=== PATIENT | female | born 1990 | race Caucasian/White ===

== ENCOUNTER 2024-03-11 12:11 | Emergency (ER) | payer OTHER ==
--- NOTE | 2024-03-11 12:29 | ER ---
Nurse's Notes [facility] Name: Leanne Garcia Age: 33 yrs Sex: Female : 1990 Arrival Date: 03/11/2024 Time: 12:11 Bed 12 Private MD: Diagnosis: Acute tonsillitis, unspecified Presentation: 03/11 12:22 Chief complaint: Patient states: "I'm pretty sure I have strep" pt states fever and as6 sore throat that started yesterday and swollen tonsils that started today. Coronavirus screen: At this time, the client does not indicate any symptoms associated with coronavirus-19. Ebola Screen: No symptoms or risks identified at this time. Initial Sepsis Screen: Does the patient meet any 2 criteria? No. Patient's initial sepsis screen is negative. Does the patient have a suspected source of infection? No. Patient's initial sepsis screen is negative. Risk Assessment: Do you want to hurt yourself or someone else? Patient reports no desire to harm self or others. Onset of symptoms was March 10, 2024. 12:22 Acuity: CHAUNCEY 4 as6 12:22 Method Of Arrival: Ambulatory as6 Triage Assessment: 12:23 General: Appears in no apparent distress. Behavior is calm, cooperative. Pain: as6 Complains of pain in throat. EENT: Throat is reddened has patchy exudate has enlarged tonsils bilaterally. 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 - Infectious Disease History:: Denies. - Social history:: Smoking status: Patient reports the use of cigarette tobacco products, smokes one-half pack cigarettes per day. - Family history:: not pertinent. - Hospitalizations: : No recent hospitalization is reported. Screenin:14 [facility] ED Fall Risk Assessment (Adult) History of falling in the last 3 months, mb9 including since admission No falls in past 3 months (0 pts) Confusion or Disorientation No (0 pts) Intoxicated or Sedated No (0 pts) Impaired Gait No (0 pts) Mobility Assist Device Used No (0 pt) Altered Elimination No (0 pt) Score/Fall Risk Level 0 - 2 = Low Risk Oriented to surroundings, Maintained a safe environment, Educated pt \\T\\ family on fall prevention, incl call for assistance when getting out of bed, Assessed \\T\\ reinforced patient's understanding of fall precautions. Abuse screen: Denies threats or abuse. Nutritional screening: No deficits noted. Tuberculosis screening: No symptoms or risk factors identified. Assessment: 12:26 General: Appears in no apparent distress. Behavior is calm, cooperative. Pain: mb9 Complains of pain in throat Pain does not radiate. Quality of pain is described as throbbing. Neuro: Snyder Agitation-Sedation Scale (RASS): 0 - Alert and Calm Level of Consciousness is awake, alert, obeys commands, Oriented to person, place, time, situation, Appropriate for age. Cardiovascular: Heart tones S1 S2 present Patient's skin is warm and dry. Respiratory: Airway is patent Respiratory effort is even, unlabored, Respiratory pattern is regular, symmetrical, Breath sounds are clear bilaterally. GI: No signs and/or symptoms were reported involving the gastrointestinal system. : No signs and/or symptoms were reported regarding the genitourinary system. EENT: Throat is reddened. Derm: Skin is pink, warm \\T\\ dry. Musculoskeletal: Range of motion: intact in all extremities. Vital Signs: 12:19 BP 125 / 93; Pulse 87; Resp 18; Temp 98; Pulse Ox 100% ; Weight 90.72 kg; Height 5 ft. as6 6 in. ; Pain 8/10; 12:19 Body Mass Index 32.28 (90.72 kg, 167.64 cm) as6 12:19 Pain Scale: Adult as6 ED Course: 12:14 Patient arrived in ED. mg5 12:14 Lela Birch, RN is Primary Nurse. mb9 12:14 Arm band placed on. mb9 12:15 Placed in gown. Bed in low position. Call light in reach. Side rails up X 1. Provided mb9 Education on: press call light if needing anything. Client placed on continuous cardiac and pulse oximetry monitoring. NIBP monitoring applied. 12:18 Saurav Tamayo MD is Attending Physician. rn 12:23 Triage completed. as6 12:27 No provider procedures requiring assistance completed. Patient did not have IV access mb9 during this emergency room visit. Administered Medications: No medications were administered Medication: 12:15 VIS not applicable for this client. rodriguez Outcome: 12:28 Discharge ordered by . rn 12:34 Discharged to home ambulatory, with family, rodriguez 12:34 Condition: stable 12:34 Discharge instructions given to patient, family, Instructed on discharge instructions, follow up and referral plans. Demonstrated understanding of instructions, follow-up care, medications, Prescriptions given X 1, 12:35 Patient left the ED. rodriguez Signatures: Saurav Tamayo MD MD rn Slawson, Ashby, RN RN as6 Lela Birch RN RN mb9 Rosa Fair 5
--- NOTE | 2024-03-11 12:29 | EDPHYS ---
Physician Documentation [facility] Name: Leanne Garcia Age: 33 yrs Sex: Female : 1990 Arrival Date: 03/11/2024 Time: 12:11 Bed 12 Private MD: ED Physician Saurav Tamayo HPI: 03/11 12:27 This 33 yrs old Female presents to ER via Ambulatory with complaints of Sore Throat. rn 12:27 The patient presents with sore throat. The patient describes throat pain as raw. Onset: rn The symptoms/episode began/occurred yesterday. Severity of symptoms: At their worst the symptoms were moderate, in the emergency department the symptoms are unchanged. Modifying factors: The symptoms are alleviated by nothing, the symptoms are aggravated by swallowing, Patient's oral intake status: good. The patient has experienced similar episodes in the past. Patient reports sore throat for 2 days. No trauma. Has had strep throat before and feels similar. No runny nose or shortness of breath.. 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 - Infectious Disease History:: Denies. - Social history:: Smoking status: Patient reports the use of cigarette tobacco products, smokes one-half pack cigarettes per day. - Family history:: not pertinent. - Hospitalizations: : No recent hospitalization is reported. ROS: 12:27 Constitutional: Negative for fever, chills, and weight loss, ENT: Positive for sore rn throat Exam: 12:27 Constitutional: This is a well developed, well nourished patient who is awake, alert, rn and in no acute distress. ENT: Bilateral tonsillar hypertrophy with exudate. No stridor. Neck: Bilateral tender cervical lymphadenopathy present. Respiratory: No increased work of breathing, no retractions or nasal flaring. Vital Signs: 12:19 BP 125 / 93; Pulse 87; Resp 18; Temp 98; Pulse Ox 100% ; Weight 90.72 kg; Height 5 ft. as6 6 in. ; Pain 8/10; 12:19 Body Mass Index 32.28 (90.72 kg, 167.64 cm) as6 12:19 Pain Scale: Adult as6 MDM: 12:18 Patient medically screened. rn 12:27 Differential diagnosis: group A strep tonsillitis, tonsillitis. Data reviewed: vital rn signs, nurses notes, lab test result(s), and as a result, I will discharge patient. Counseling: I had a detailed discussion with the patient and/or guardian regarding the historical points, exam findings, and any diagnostic results supporting the discharge/admit diagnosis, the need for outpatient follow up, to return to the emergency department if symptoms worsen or persist or if there are any questions or concerns that arise at home. Special discussion: I discussed with the patient/guardian in detail that at this point there is no indication for admission to the hospital. It is understood, however, that if the symptoms persist or worsen the patient needs to return immediately for re-evaluation. 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
[2024-03-11 12:42] VITALS: BP 125/93; TEMP 98; O2SAT 100
== END 2024-03-11 12:35 | disposition home or self-care (01) ==
LOC: ER 12:11
DX: J03.90 Acute tonsillitis, unspecified (principal); F17.210 Nicotine dependence, cigarettes, uncomplicated
CPT/HCPCS: 87081; 99283

== ENCOUNTER 2024-05-03 16:01 | Emergency (ER) | payer SELFPAY ==
--- NOTE | 2024-05-03 16:34 | RAD REPORT ---
EXAM DESCRIPTION: Froy Single View05/03/2024 4:28 pm CLINICAL HISTORY: CHEST PAIN COMPARISON: No comparisons TECHNIQUE: Portable AP view of the chest. FINDINGS: The lungs are clear. No pneumothorax or effusion. The cardiomediastinal contours are unre markable. IMPRESSION: No acute cardiopulmonary process.
--- NOTE | 2024-05-03 16:54 | RAD REPORT ---
EXAM DESCRIPTION: Ribs Right - 05/03/2024 4:28 pm CLINICAL HISTORY: RIB PAIN - RIGHT COMPARISON: Chest Single View dated 05/03/2024 TECHNIQUE: Right ribs, 3 views. FINDINGS: No displaced rib fracture is evident. No aggressive rib lesion. No underlying pneumothorax, effusion, infiltrate or pulmonary contusion. IMPRESSION: Negative right rib series.
--- NOTE | 2024-05-03 16:58 | ER ---
Nurse's Notes [facility] Name: Leanne Garcia Age: 33 yrs Sex: Female : 1990 Arrival Date: 05/03/2024 Time: 16:01 Bed 17 Private MD: Diagnosis: Contusion of right back wall of thorax Presentation: 05/03 16:12 Chief complaint: Patient states: fell out of tube and hit right posterior ribs on me1 something about 2 weeks ago. Was stretching last night and heard something pop and has worsened pain today. Coronavirus screen: Vaccine status: Patient reports receiving the 2nd dose of the covid vaccine. Ebola Screen: No symptoms or risks identified at this time. Initial Sepsis Screen: Does the patient meet any 2 criteria? No. Patient's initial sepsis screen is negative. Does the patient have a suspected source of infection? No. Patient's initial sepsis screen is negative. Risk Assessment: Do you want to hurt yourself or someone else? Patient reports no desire to harm self or others. Onset of symptoms was April 19, 2024. 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 - Infectious Disease History:: Denies. - Social history:: Smoking status: Patient reports the use of cigarette tobacco products, smokes one-half pack cigarettes per day. Screenin:25 [facility] ED Fall Risk Assessment (Adult) History of falling in the last 3 months, tl4 including since admission No falls in past 3 months (0 pts) Confusion or Disorientation No (0 pts) Intoxicated or Sedated No (0 pts) Impaired Gait No (0 pts) Mobility Assist Device Used No (0 pt) Altered Elimination No (0 pt) Score/Fall Risk Level 0 - 2 = Low Risk Oriented to surroundings, Maintained a safe environment, Educated pt \T\ family on fall prevention, incl call for assistance when getting out of bed, Assessed \T\ reinforced patient's understanding of fall precautions. Abuse screen: Denies threats or abuse. Denies injuries from another. Nutritional screening: No deficits noted. Tuberculosis screening: No symptoms or risk factors identified. Assessment: 16:22 General: Appears in no apparent distress. Behavior is calm, cooperative. Pain: tl4 Complains of pain in right lateral posterior chest. Neuro: Level of Consciousness is awake, alert, obeys commands, Oriented to person, place, time, situation, Moves all extremities. Full function Gait is steady, Speech is normal, Facial symmetry appears normal. Cardiovascular: Capillary refill < 3 seconds Patient's skin is warm and dry. Respiratory: Airway is patent Respiratory effort is even, unlabored, Respiratory pattern is regular, symmetrical, Breath sounds are clear bilaterally. GI: No signs and/or symptoms were reported involving the gastrointestinal system. : No signs and/or symptoms were reported regarding the genitourinary system. EENT: No signs and/or symptoms were reported regarding the EENT system. Derm: No signs and/or symptoms reported regarding the dermatologic system. Musculoskeletal: Reports pain in right lateral posterior chest. Vital Signs: 16:12 BP 127 / 102; Pulse 99; Resp 18; Temp 97.8; Pulse Ox 99% ; Pain 8/10; me1 17:22 BP 124 / 86; Pulse 83; Resp 18; Temp 98.1(O); Pulse Ox 99% on R/A; tl4 16:12 Pain Scale: Adult me1 ED Course: 16:02 Patient arrived in ED. im 16:06 Yvonne Lala [facility]-C [facility]. kb 16:06 Bright Woods MD is Attending Physician. kb 16:13 Triage completed. me1 16:13 Arm band placed on Patient placed in an exam room. me1 16:29 Chest Single View XRAY In Process Unspecified. EDMS 16:30 Ribs Right XRAY In Process Unspecified. EDMS 17:22 Patient has correct armband on for positive identification. Bed in low position. Call tl4 light in reach. Side rails up X 1. Adult w/ patient. Provided Education on: ed process, call morrison. Client placed on continuous cardiac and pulse oximetry monitoring. NIBP monitoring applied. 17:23 No provider procedures requiring assistance completed. Patient did not have IV access tl4 during this emergency room visit. Administered Medications: 17:06 Drug: Hydrocodone-Acetaminophen PO (7.5 mg-325 mg) 1 tabs PO once Route: PO; tl4 17:19 Follow up: Response: No adverse reaction tl4 Medication: 17:22 VIS not applicable for this client. tl4 Outcome: 16:57 Discharge ordered by . mayte 17:23 Discharged to home ambulatory, with family, tl4 17:23 Condition: stable 17:23 Discharge instructions given to patient, Instructed on discharge instructions, follow up and referral plans. medication usage, Demonstrated understanding of instructions, follow-up care, medications, Prescriptions given X 1, 17:24 Patient left the ED. tl4 Signatures: Dispatcher [employer] EDME Yvonne Lala, HISTORY TUTOR-C HISTORY TUTOR-CkNasrin Mar Michelle, RN RN me1 Bradford Sawyer RN RN tl4
--- NOTE | 2024-05-03 16:58 | EDPHYS ---
Physician Documentation [facility] Name: Leanne Garcia Age: 33 yrs Sex: Female : 1990 Arrival Date: 05/03/2024 Time: 16:01 Bed 17 Private MD: ED Physician Bright Woods HPI: 05/03 16:54 This 33 yrs old Female presents to ER via Ambulatory with complaints of Rib pain. kb 16:54 Pt is a 33 year old female who presents for right posterior rib pain that started 2 kb week ago after hitting it on a rock or limb while tubing in the river. States the pain was getting better, but today she was doing some stretches and felt a pop, now the pain is back. Pain aggravated with movement and breathing. Denies shortness of breath. 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 - Infectious Disease History:: Denies. - Social history:: Smoking status: Patient reports the use of cigarette tobacco products, smokes one-half pack cigarettes per day. ROS: 16:53 Constitutional: As per HPI kb Exam: 16:53 Constitutional: This is a well developed, well nourished patient who is awake, alert, kb and in no acute distress. Head/Face: Normocephalic, atraumatic. ENT: Moist Mucous membranes Cardiovascular: Regular rate Respiratory: Respirations even and unlabored. No increased work of breathing. Talking in full sentences Abdomen/GI: Soft, non-tender. No distention Skin: Warm, dry with normal turgor. Normal color. MS/ Extremity: Pulses equal, no cyanosis. Neurovascular intact. Full, normal range of motion. Neuro: Awake and alert, GCS 15, oriented to person, place, time, and situation. Moves all extremities. Normal gait. 16:53 Chest/axilla: Inspection: ecchymosis, that is mild, that is moderate, of the right lateral posterior chest Palpation: is normal, Vital Signs: 16:12 BP 127 / 102; Pulse 99; Resp 18; Temp 97.8; Pulse Ox 99% ; Pain 8/10; me1 17:22 BP 124 / 86; Pulse 83; Resp 18; Temp 98.1(O); Pulse Ox 99% on R/A; tl4 16:12 Pain Scale: Adult me1 MDM: 16:06 Patient medically screened. kb 16:54 Differential diagnosis: pneumothorax, contusion of back wall of thorax, rib fracture. kb Data reviewed: vital signs, nurses notes. Counseling: I had a detailed discussion with the patient and/or guardian regarding the historical points, exam findings, and any diagnostic results supporting the discharge/admit diagnosis, radiology results, the need for outpatient follow up, a family practitioner, to return to the emergency department if symptoms worsen or persist or if there are any questions or concerns that arise at home. 05/03 16:11 Order name: Chest Single View XRAY; Complete Time: 16:42 kb 05/03 16:11 Order name: Ribs Right XRAY; Complete Time: 16:57 kb Administered Medications: 17:06 Drug: Hydrocodone-Acetaminophen PO (7.5 mg-325 mg) 1 tabs PO once Route: PO; tl4 17:19 Follow up: Response: No adverse reaction tl4 Disposition Summary: 05/03/24 16:57 Discharge Ordered Notes: Location: Home kb Condition: Stable kb Diagnosis - Contusion of right back wall of thorax kb Followup: kb - With: Emergency Department - When: As needed - Reason: Worsening of condition Followup: kb - With: Private Physician - When: 2 - 3 days - Reason: Recheck today's complaints, Continuance of care, Re-evaluation by your physician Discharge Instructions: - Discharge Summary Sheet kb - Chest Contusion, Adult, [id number] kb - Rib Fracture, [id number] kb Forms: - Work release form kb - Medication Reconciliation Form kb - Antibiotic Education kb - Prescription Opioid Use kb - Patient Portal Instructions kb - Leadership Thank You Letter kb Prescriptions: - Diclofenac Sodium 75 mg Oral tablet, delayed release (enteric coated) - take 1 tablet ORAL route 2 times per day As needed; 30 tablet; Refills: 0, kb Product Selection Permitted Addendum: 05/04/2024 17:52 I was immediately available for consultation during this patient's visit. I did not e c2 personally see the patient or discuss the patient with the [place]. . Signatures: Dispatcher [employer] ALY Lala Yvonne, SALES DEVELOPMENT COORDINATOR-C SALES DEVELOPMENT COORDINATOR-Ckb Stacy Breen, RN RN me1 Bright Woods MD MD ec2 Bradford Sawyer RN RN tl4 Corrections: (The following items were deleted from the chart) 05/03 16:56 16:54 Pt is a 33 year old female who presents for right posterior rib pain that started kb 2 week ago after hitting it on a rock or limb while tubing in the river. States the pain was getting better, but today she was doing some stretches and felt a pop, now the pain is back. . kb
[2024-05-03] MEDS ORDERED: HYDROCODONE/APAP 7.5/325 MG TAB ONE (17:14)
[2024-05-03 20:29] VITALS: O2SAT 99
[2024-05-03 20:30] VITALS: BP 124/86; TEMP 98.1
== END 2024-05-03 17:24 | disposition home or self-care (01) ==
LOC: ER 16:01
DX: S20.221A Contusion of right back wall of thorax, initial encounter (principal)
CPT/HCPCS: 71045; 99284